=== PATIENT | female | born 1965 | race African-American/Black ===

== ENCOUNTER → 2022-11-28 | Day surgery (SDC) | payer MEDICAID ==
[~2022-11-28] VITALS: Ht 167.6 cm; Wt 108.9 kg
[~2022-11-28] MED LIST: AMLO10TA80 PO; BUPIVACAINE HCL/PF 0.5% (5MG/ML) 10ML ONE; CEFAZOLIN SODIUM 1000MG/VIAL ONE; CHOL2000 PO; FENTANYL CITRATE/PF 50MCG/ML 2ML VIAL ONE; FURO-151 PO; KETOROLAC 30MG/ML VIAL ONE; LACTATED RINGERS 1,000 ML IV SCH; MIDAZOLAM HCL 2 MG/2 ML VIAL ONE; ONDANSETRON HCL 4MG/2ML INJ ONE; PHEN15CA61 PO; PROPOFOL 200MG/20ML VIAL IV ONE; SKIN ADHESIVE 0.7 GM EA TOP ONE
== END | disposition home or self-care (01) ==
LOC: OR 06:31
PROVIDERS: ATTEND Surgery
DX: D17.1 Benign lipomatous neoplasm of skin and subcutaneous tissue of trunk (principal); I10 Essential (primary) hypertension; M19.90 Unspecified osteoarthritis, unspecified site; Z79.899 Other long term (current) drug therapy
CPT/HCPCS: 21933; 88304; J0690; J1885; J2250; J2405; J2704; J3010; J3490